=== PATIENT | male | born 1935 | race Caucasian/White ===

== ENCOUNTER 2017-01-03 07:00 | Emergency (ER) | payer MEDICARE, OTHER ==
[2017-01-03 07:44] LABS: BASOPHILS 0.7 % (0.0-2.0); EOSINOPHILS 0.2 % (0.0-6.0); HEMATOCRIT 45.3 % (42.0-54.0); HEMOGLOBIN 15.2 g/dL (14.0-18.0); LYMPHOCYTES# 0.3 X 10^3uL (0.8-3.8); MEAN CELL VOLUME 95.3 fL (80.0-100.0); MEAN CORPUS. HGB CONCENTRATION 33.5 g/dL (32.0-36.0); MEAN CORPUSCULAR HEMOGLOBIN 31.9 pg (29.0-35.0); MEAN PLATELET VOLUME 9.1 fL (7.4-10.4); MONOCYTES 14.5 % (2.0-10.0); NEUTROPHILS 79.6 % (54.0-75.0); NEUTROPHILS# 5.4 X 10^3uL (2.6-6.7); PLATELET COUNT 201 X 10^3uL (130-440); RED BLOOD COUNT 4.76 X 10^6uL (4.20-6.10); RED CELL DISTRIBUTION WIDTH 13.9 % (11.5-14.5); WHITE BLOOD COUNT 6.7 X 10^3uL (3.9-10.7)
[2017-01-03 07:51] LABS: BLOOD UREA NITROGEN 26 mg/dL (9-20); CALCIUM 9.8 mg/dL (8.4-10.2); GLUCOSE 115 mg/dL (70-100); MAGNESIUM 2.4 mg/dL (1.6-2.3); POTASSIUM 3.5 mmol/L (3.5-5.1); SODIUM 138 mmol/L (137-145)
[2017-01-03 08:03] LABS: TROPONIN I 0.033 ng/mL (0.00-0.034)
[2017-01-03] MEDS ORDERED: NITROGLYCERIN 0.4 MG TAB.SUBL SUBLINGUAL ONE (08:19)
[2017-01-03] MEDS ORDERED: FUROSEMIDE 20 MG/2 ML VIAL ONE (08:19)
[2017-01-03] MEDS ORDERED: HOME MEDICATION LIST NEEDED 1 EA EACH MC ONE (08:35)
[2017-01-03 08:51] LABS: CHLORIDE 101 mmol/L (98-107)
--- NOTE | 2017-01-03 10:03 | ER NURSING DOCUMENTATION ---
Nurse's Notes [facility] Name:Osman Epstein Age:81 yrs Sex:Male :1935 Arrival Date:01/03/2017 Time:07:00 Bed1 Private MD:No PCP, Identified Diagnosis:CHF (Congestive Heart Failure) Presentation: 01/03 07:11 Presenting complaint: Patient states: pt has been seeing a metallurgical laboratory assistant in [place] for difficulty breathing and sleeping. pt continues to have those troubles here in [facility]. pt is also SOB with any activity. Transition of care: Home. 07:11 Acuity: VITO 3 st 07:11 Method Of Arrival: Private Vehicle st Triage Assessment: 07:13 General: Appears uncomfortable, Behavior is cooperative. Pain: Denies pain. st Cardiovascular: Capillary refill < 3 seconds Heart tones present Edema is 4+ to left ankle and right ankle new onset within the last few days. Respiratory: Airway is patent Respiratory effort is even, unlabored, Respiratory pattern is regular, symmetrical, Breath sounds are clear bilaterally. Reports shortness of breath on exertion Onset: The symptoms/episode began/occurred for some time now worst now, the patient has moderate shortness of breath. GI: No deficits noted. 07:13 EENT: Oral mucosa is dry. Cardiovascular: Rhythm is irregular. st Historical: - Allergies: No known drug Allergies; - Home Meds: 1. Singulair Oral 2. Prednisone Oral 3. Lisinopril Oral 4. Diltiazem Oral - PMHx: Hypertension; - Tetanus: unknown will f/u with PCP. - Ebola Screening: : Patient denies exposure to infectious person. Patient denies travel to an Ebola-affected area in the 21 days before illness onset. . - Social history: Smoking status: Patient states former smoker of tobacco. Patient/guardian denies using alcohol, marijuana. Screenin:36 Infectious Disease Risk None. Abuse screen: Denies threats or abuse. Denies injuries st from another. pt feels safe at home. Nutritional screening: No deficits noted. Assessment: 08:03 Cardiovascular: Rhythm is frequent PVCs. st 08:53 General: ECO cardiogram at bedside. . st Vital Signs: 07:01 BP 151 / 103 (auto/); Pulse 97; Temp 97.5; Pulse Ox 86% on R/A; Pain 0/10; st 07:27 BP 157 / 106 (auto/); st 07:32 Pulse 90 MON; Resp 29; Pulse Ox 96% ; st 08:22 BP 130 / 103 (auto/); st 08:34 BP 131 / 93 (auto/); st 08:37 Pulse 87 MON; Resp 23; Pulse Ox 94% ; st ED Course: 07:01 Patient arrived in ED. ds 07:01 No PCP, Identified is Private Physician. ds 07:11 Tricia Vasquez, RN is Primary Nurse. st 07:[address] 07:15 Oxygen Oxygen administration via nasal cannula @ 2L/min. st 07:17 EKG done per protocol. Performed by ED Staff. Shown to ED physician. st 07:29 Elio Hidalgo MD is Attending Physician. jm 07:31 Inserted peripheral IV: 20 gauge in left antecubital area and blood collected. st 07:36 Patient moved to radiology. ms 07:36 Valuables Remains with patient Patient has correct armband on for positive st identification. Placed in gown. Bed in low position. Call light in reach. Side rails up X 1. monitoring specialist on. Pulse ox on. NIBP on. 07:52 Patient moved back from radiology. ms 08:[address] 08:53 Bunny Marin MD is Admitting Physician. Administered Medications: 08:08 Drug: Lasix 20 mg; Route: IVP; Site: left antecubital; st 09:32 Follow up: Response: pt urinating st 08:08 Drug: Nitroglycerin 0.4 mg; Route: Sublingual; st 09:32 Follow up: Response: BP improved st Outcome: 08:53 Decision to Admit by Provider. jm 09:37 ER care complete, transfer ordered by . danyell 09:59 Transferred: Patient will be transferred to: [facility]. Facility st Acceptance Time: January 03, 2017 at 09:30 Patient's face sheet was faxed to accepting facility. Face Sheet included patient's name, address, age, gender, contact information and insurance information. Patient will be transported by: [facility] ground. Nurse and Physician Charting and Notes were sent to Accepting Facility. All tests and/or procedures with results, if applicable, were sent to accepting facility. 09:59 Condition: stable 09:59 Report given to Lyubov REAL 09:59 Instructed on need for transfer 10:02 Patient [address] the ED. st Signatures: Tricia Vasquez RN RN st Carina, Ana, Daryl Reg Elio Hughes MD MD jm Strickland, Mary ms
--- NOTE | 2017-01-03 10:03 | ER PHYSICIAN DOCUMENTATION ---
Physician Documentation [facility] Name:Osman Epstein Age:81 yrs Sex:Male :1935 Arrival Date:01/03/2017 Time:07:00 Bed1 Private MD:No PCP, Identified ED Elio Hidalgo Disposition: 01/03/17 09:[address] [facility]. Diagnosis is CHF (Congestive Heart Failure). - Reason for transfer: Specialty. - Accepting physician is Dr. Jackson. - Condition is Serious. - Problem is new. - Symptoms are unchanged. COBRA Form completed? Yes Transfer - Mode of Transportation Ambulance HPI: 01/03 08:03 This 81 yrs old Male presents to ER via Private Vehicle with complaints of jm Shortness Of Breath. 08:03 The patient has shortness of breath at rest, that woke him/her from sleep. Onset: The jm symptom(s)/episode began/occurred today, but also for the past 3 months. . Duration: The symptoms are continuous. The patient's shortness of breath is aggravated by supine position. Associated signs and symptoms: Pertinent negatives: chest pain, dizziness, fever. Severity of symptoms: in the emergency department the symptoms are unchanged. Risk Factors Risk factors for coronary artery disease include: A history of hypertension. The patient has not experienced similar symptoms in the past. The patient has been recently seen by a physician: the patient's primary care provider. Pt here for SOB, mostly at night. Pt is on 02 at night, but it is not helping. Pt has also noted swollen calves. . Historical: - Allergies: No known drug Allergies; - Home Meds: 1. Singulair Oral 2. Prednisone Oral 3. Lisinopril Oral 4. Diltiazem Oral - PMHx: Hypertension; - Tetanus: unknown will f/u with PCP. - Ebola Screening: : Patient denies exposure to infectious person. Patient denies travel to an Ebola-affected area in the 21 days before illness onset. . - Social history: Smoking status: Patient states former smoker of tobacco. Patient/guardian denies using alcohol, marijuana. ROS: 08:10 Constitutional: Negative for fatigue, fever. jm 08:10 ENT: Negative for rhinorrhea, sinus congestion, sinus pain, sore throat. 08:10 Neck: Negative for tenderness, bony tenderness. 08:10 Cardiovascular: Negative for chest pain. 08:10 Cardiovascular: Positive for edema, orthopnea, paroxysmal nocturnal dyspnea. 08:10 Respiratory: Positive for shortness of breath. 08:10 Abdomen/GI: Negative for abdominal pain, nausea, vomiting, diarrhea. 08:10 MS/extremity: Positive for swelling. 08:10 Skin: Positive for swelling. 08:10 Neuro: Negative for dizziness, headache, loss of consciousness. 08:10 Psych: Positive for insomnia. 08:10 All other systems are negative. Exam: 08:11 Constitutional: The patient appears alert, awake, comfortable. 08:11 Eyes: Periorbital structures: appear normal, Extraocular movements: intact throughout. 08:11 ENT: Mouth: is normal, Voice: is normal. 08:11 Chest/axilla: Inspection: normal, Palpation: is normal. 08:11 Cardiovascular: Rate: normal, Rhythm: irregular, Pulses: no pulse deficits are appreciated, Edema: 3+ edema to level of left midcalf and right midcalf. 08:11 Respiratory: the patient does not display signs of respiratory distress, Respirations: normal, Breath sounds: rales, that are moderate, are located in both bases. 08:11 Abdomen/GI: Inspection: abdomen appears normal, Palpation: abdomen is soft and non-tender. 08:11 Musculoskeletal/extremity: DVT Exam: no pain, swelling, Calves: are non-tender, have equal circumference. 08:11 Skin: Appearance: Color: pink, no rash present. 08:11 Neuro: Mentation: is normal, Memory: is normal. 08:11 Psych: Behavior/mood is pleasant, Affect is calm. Vital Signs: 07:01 BP 151 / 103 (auto/); Pulse 97; Temp 97.5; Pulse Ox 86% on R/A; Pain 0/10; st 07:27 BP 157 / 106 (auto/); st 07:32 Pulse 90 MON; Resp 29; Pulse Ox 96% ; st 08:22 BP 130 / 103 (auto/); st 08:34 BP 131 / 93 (auto/); st 08:37 Pulse 87 MON; Resp 23; Pulse Ox 94% ; st MDM: 07:29 Patient medically screened. 08:50 Differential diagnosis: CHF exacerbation, pulmonary edema. Data reviewed: vital signs, nurses notes, lab test result(s), EKG, radiologic studies, and as a result, I will admit patient. Test interpretation: by ED physician or midlevel provider: plain radiologic studies, ECG. Counseling: I had a detailed discussion with the patient and/or guardian regarding: the historical points, exam findings, and any diagnostic results supporting the discharge/admit diagnosis, lab results, radiology results, the need for further work-up and treatment in the hospital. ECG:. Physician consultation: Matt Montenegro MD regarding need to come to ED to see patient, and will see patient immediately, would like admission per Dr. Bunny Marin MD would like further tests performed, echocardiogram. ED course: Pt w CHF based on clinical evidence. Pt will need admission w ECHO and diuresis. Dr. Montenegro came to see pt and feels he is a pt that can stay at [facility]. Dr. Marin agrees. Pt admitted. . 09:34 ED course: ECHO was done here which showed a 15% EF and minimal inferior wall motion. jm Dr. Montenegro came to the ER to tell me this, and suggested transfer to [facility] for catheterization and cards consult at lower [place]. . 01/03 07:49 Order name: CBC AUTO DIF, MDIF/RMOR IF IND; Complete Time: 10:04 EDSD 01/03 08:00 Order name: BASIC METABOLIC PANEL; Complete Time: 10:04 [facility] 01/03 08:00 Order name: MAGNESIUM; Complete Time: 10:04 EDSD 01/03 08:06 Order name: TROPONIN I; Complete Time: 10:04 [facility] 01/03 08:16 Order name: BNP,NT-PRO; Complete Time: 10:04 [facility] 01/03 11:30 Order name: CXR 2V [id number] EDSD 01/03 07:30 Order name: Oxygen; Complete Time: 07:34 st 01/03 07:30 Order name: EKG - 12 Lead; Complete Time: 07:34 st 01/03 07:37 Order name: Continuous Cardiac Monitoring; Complete Time: 07:37 st 01/03 07:37 Order name: Pulse Ox Continuous; Complete Time: 07:37 st EC:50 Rhythm is irregular, Normal Sinus Rhythm with Multifocal PVCs. QT interval is normal. danyell No Q waves. T waves are Normal. No ST changes noted. Dispensed Medications: 08:08 Drug: Lasix 20 mg; Route: IVP; Site: left antecubital; st 09:32 Follow up: Response: pt urinating 08:08 Drug: Nitroglycerin 0.4 mg; Route: Sublingual; 09:32 Follow up: Response: BP improved st Signatures: Tricia Vasquez, RN RN Elio Luz MD MD jm
--- NOTE | 2017-01-03 11:09 | RADIOLOGY REPORT ---
Two views of the chest, without prior films for comparison, demonstrate the cardiac silhouette to be enlarged. Central pulmonary vasculature is prominent. Moderate bilateral pleural effusions are noted. The mid and upper lung philip are clear. IMPRESSION: Findings are consistent with a significant degree of congestive failure. MTDD
[2017-01-03] MEDS ORDERED: FUROSEMIDE 40 MG/4 ML VIAL IV SCH (14:00)
== END 2017-01-03 10:03 | disposition short-term general hospital (02) ==
LOC: ER 07:00
DX: I50.20 Unspecified systolic (congestive) heart failure (principal); R60.0 Localized edema; R06.00 Dyspnea, unspecified; R06.01 Orthopnea; G47.00 Insomnia, unspecified; I49.3 Ventricular premature depolarization; I48.91 Unspecified atrial fibrillation; I45.10 Unspecified right bundle-branch block; I44.4 Left anterior fascicular block; I10 Essential (primary) hypertension; Z79.899 Other long term (current) drug therapy; Z79.52 Long term (current) use of systemic steroids; Z74.3 Need for continuous supervision
CPT/HCPCS: 71020; 80048; 83735; 83880; 84484; 85025; 93005; 93306; 96374; 99285; A0425; A0427; J1940